=== PATIENT | female | born 1990 | race Two or more races ===

== ENCOUNTER 2019-02-18 23:03 | Emergency (ER) | payer MEDICAID ==
[~2019-02-18] VITALS: Ht 175.3 cm; Wt 136.1 kg
[2019-02-18 23:30] VITALS: BP 148/94
== END 2019-02-19 02:53 | disposition left against medical advice (07) ==
LOC: ER 23:03
DX: M25.532 Pain in left wrist (principal); M25.572 Pain in left ankle and joints of left foot; Z53.21 Procedure and treatment not carried out due to patient leaving prior to being seen by health care provider; W19.XXXA Unspecified fall, initial encounter; Y93.89 Activity, other specified; Y92.89 Other specified places as the place of occurrence of the external cause; Y99.8 Other external cause status
CPT/HCPCS: 73110; 73610

== ENCOUNTER 2022-01-20 01:34 | Emergency (ER) | payer MEDICAID ==
[~2022-01-20] VITALS: Ht 172.7 cm; Wt 134.7 kg
[2022-01-20 02:41] LABS: Basophils # (auto) 0 10 ^3/uL (0-0.2); Eosinophils # (auto) 0 10 ^3/uL (0-0.8); Monocytes # (auto) 0.7 10 ^3/uL (0-1.3); Nucleated Red Blood Cells % 0.1 %; Red Blood Cells 4.82 10^6/uL (4.0-5.20); White Blood Cell 4.1 10^3/uL (4.4-10.8)
[2022-01-20 02:43] LABS: Basophils % (auto) 0.6 % (0.0-2.0); Eosinophils % (auto) 0.5 % (0.0-7.0); Hematocrit 37.6 % (36.0-46.0); Hemoglobin 12.4 g/dL (12.2-16.2); Lymphocytes # (auto) 1.3 10 ^3/uL (0.4-5.4); Lymphocytes % (auto) 32.7 % (10.0-50.0); Mean Corpuscular Hemoglobin 25.8 pg (28.0-32.0); Mean Corpuscular Hgb Conc. 33.1 g/dL (32.0-36.0); Monocytes % (auto) 16.7 % (0.0-12.0); Neutrophils % (auto) 49.5 % (37.0-80.0); Red Cell Distribution Width 15.9 % (11.8-14.3)
[2022-01-20 02:48] LABS: Albumin 3.2 g/dL (3.4-5.0); BUN/Creatinine Ratio 11.1; Calcium 8.3 mg/dL (8.5-10.1); Potassium 3.7 mmol/L (3.5-5.1)
[2022-01-20 02:51] LABS: Bilirubin, Total 0.2 mg/dL (0.2-1.0); Total Protein 7.7 g/dL (6.4-8.2)
[2022-01-20 04:48] LABS: Urine Bacteria MANY /hpf (None Seen); Urine Blood Negative /uL (Negative); Urine Mucus FEW (None Seen); Urine Specific Gravity 1.021 (1.001-1.035); Urine WBC 1 /hpf (0 - 5)
[2022-01-20] MEDS ORDERED: KETOROLAC TROMETH 30 MG/ML 1ML VIAL IV ONE (08:45)
[2022-01-20] MEDS ORDERED: AZITHROMYCIN 500MG/ 250ML 250 ML IV ONE (08:45)
[2022-01-20] MEDS ORDERED: ASCO500T11 PO (11:27)
[2022-01-20] MEDS ORDERED: AZIT500T PO ×2 (11:27→11:42)
[2022-01-20] MEDS ORDERED: ACET-1080 PO (11:27)
[2022-01-20] MEDS ORDERED: ZINC SULFATE 220mg CAP or TAB PO ONE (11:30)
[2022-01-20] MEDS ORDERED: ASCORBIC ACID 500 MG TAB PO ONE (11:30)
[2022-01-20] MEDS ORDERED: CHOLECALCIFEROL (VITD3) 2,000 UNIT CAP/TAB PO ONE (11:30)
[2022-01-20] MEDS ORDERED: [UNRECOGNIZED DRUG - CODE] PO (11:42)
[2022-01-20] MEDS ORDERED: ACET-1803 PO (11:42)
[2022-01-20] MEDS ORDERED: CAL025T GT (11:42)
[2022-01-20] MEDS ORDERED: ZINC220C10 PO (11:42)
[2022-01-20 12:40] VITALS: BP 104/72
== END 2022-01-20 14:25 | disposition home or self-care (01) ==
LOC: ER 01:34 → EDBD 01:34 → ER 14:25
DX: U07.1 COVID-19 (principal); M79.10 Myalgia, unspecified site; R82.71 Bacteriuria; E66.9 Obesity, unspecified; E46 Unspecified protein-calorie malnutrition; Z68.36 Body mass index [BMI] 36.0-36.9, adult
CPT/HCPCS: 36415; 71045; 80053; 81001; 83605; 84702; 85025; 87426; 87804; 96365; 96366; 96375; 99285; J0456; J1885